=== PATIENT | male | born 1950 | race Caucasian/White ===

== ENCOUNTER 2021-01-07 08:47 | Day surgery (SDC) | payer MEDICARE, SELFPAY ==
--- NOTE | 2021-01-06 11:50 | HO.ANESPROP2 ---
HPI - Anesthesia Eval Consult details Narrative: 70yo M for Colonoscopy [facility] Past Medical History Medical History History of urinary incontinence HTN (hypertension) Neuropathy Surgical History Surgical History Hx of cervical discectomy Hx of colonoscopy Hx of hernia repair Hx of prostatectomy Hx of transurethral resection of prostate Social History Social History Patient Tobacco Use Status: Never used Tobacco Use of substances other than those prescribed or required for medical reasons: No Have you been hit, kicked, punched, or otherwise hurt by someone within the past year? If so, by whom?: No Are you DNR?: No Advance Directives: No Advance Directives Information Provided: Yes Meds Allergies Allergy/AdvReac Type Severity Reaction Status Date / Time No Known Allergies Allergy Verified 01/06/21 12:36 Exam Exam Date and Time: January 06, 2021 1150 Assessment and Plan Assessment Anesthesia Assessment: Chart Reviewed
[2021-01-07 09:15] VITALS: BP 142/75; PULSE 66; RESP 18; TEMP 36.5; O2SAT 97
[2021-01-07 09:19] VITALS: BMI 25.1
--- NOTE | 2021-01-07 09:29 | HO.ANESPROP2 ---
COUNT INCLUDES THE [facility] Past Medical History Medical History History of urinary incontinence HTN (hypertension) Neuropathy Surgical History Surgical History Hx of cervical discectomy Hx of colonoscopy Hx of hernia repair Hx of prostatectomy Hx of transurethral resection of prostate Social History Social History Patient Tobacco Use Status: Never used Tobacco Use of substances other than those prescribed or required for medical reasons: No Have you been hit, kicked, punched, or otherwise hurt by someone within the past year? If so, by whom?: No Are you DNR?: No Advance Directives: No Advance Directives Information Provided: Yes Meds Allergies Allergy/AdvReac Type Severity Reaction Status Date / Time No Known Allergies Allergy Verified 01/06/21 12:36 Active Medications: Current Medications Generic Name Dose Route Start Last Admin Trade Name Terenceq PRN Reason Stop Dose Admin Lactated Ringer's 1,000 mls @ 100 mls/hr 01/07/21 09:15 Lr IVCONT .Q10H JIAN Exam Exam Date and Time: January 07, [id number] Height,Weight and Vital Signs: Height 5 ft 9 in Weight 77.111 kg Last Vital Signs Temp 97.7 F 01/07/21 09:15 Pulse 66 01/07/21 09:15 Resp 18 01/07/21 09:15 BP 142/75 H 01/07/21 09:15 Pulse Ox 97 01/07/21 09:15 Airway Mallampati Class: I TM Dist: >3cm Neck ROM: Full Heart: RRR Lungs: CTA
[2021-01-07] MEDS: Lactated Ringers 1,000 ML 100 ML IVCONT (09:44)
--- NOTE | 2021-01-07 10:18 | MHC.SHP ---
Pre-Procedural Eval Section A The patient is an INPATIENT: No Changes since office visit: No Cold of Flu in the past 2 weeks, No New Medical Problems, No Changes in Medication and No Patient answered all questions The History & Physical has been completed within 30 days and I have reviewed it.: Yes Section B Chief Complaint: screening Allergies: Allergies Allergy/AdvReac Type Severity Reaction Status Date / Time No Known Allergies Allergy Verified 01/06/21 12:36 Plan I have reviewed the history and physical and performed a pertinent physical examination on my patient. No changes have occurred unless specified.
--- NOTE | 2021-01-07 10:44 | P.BOP_ITS ---
Brief Operative Note Date of Service: 01/07/21 Pre-op diagnosis: screening Post-op diagnosis: same (colon polyp) Surgeon: Eugene Khan Anesthesia: MAC Was an Flight [employer] Specialist used for this Procedure?: No Estimated blood loss (mL): 2 Pathology: other (polyp x1) Condition: stable Disposition: PACU
[2021-01-07 10:48] VITALS: BP 115/69; PULSE 52; RESP 16; TEMP 35.9; O2SAT 98
[2021-01-07 11:03] VITALS: BP 147/86; PULSE 53; RESP 18; TEMP 36.2; O2SAT 98
--- NOTE | 2021-01-07 11:50 | HO.POSTANES ---
Post Anesthesia Evaluation Post Anesthesia Evaluation Vital Signs: Vital Signs Temp Pulse Resp BP Pulse Ox 01/07/21 11:03 97.1 F 53 18 147/86 H 98 01/07/21 10:48 96.6 F L 52 16 115/69 98 01/07/21 09:15 97.7 F 66 18 142/75 H 97 Anesthesia: Monitored Mental Status: Awake Pain Control: Satisfactory Nausea/Vomiting: None Hydration: Adequate Anesthesia-Related Issues: No Anes. Related Issues
--- NOTE | 2021-01-07 12:34 | OP_ITS ---
SURGEON: Eugene Khan MD INDICATIONS: Colon cancer screening and prior history of adenomatous colon polyps. PREOPERATIVE DIAGNOSIS: POSTOPERATIVE DIAGNOSIS: PROCEDURE PERFORMED: Colonoscopy to the terminal ileum with biopsy. ESTIMATED BLOOD LOSS: COMPLICATIONS: ANESTHESIA: ASSISTANTS: SPECIMENS: MEDICATIONS: Monitored anesthesia care. DESCRIPTION OF PROCEDURE: History and physical performed. The risks and benefits of the procedure were explained to the patient. Informed consent was obtained. The patient was placed in left lateral decubitus position. A digital rectal exam was performed and was found to be normal. The Olympus pediatric video colonoscope was introduced into the rectum and advanced to the cecum without difficulty. The cecum was identified by transillumination, palpation, and identification of the ileocecal valve. Examination was performed and the scope was removed. He tolerated the procedure well and was taken to recovery area in stable condition. FINDINGS: The terminal ileum was normal. The visualized colonic mucosa was normal. The quality of the prep was good. A single polyp measuring less than 5 mm was identified at 60 cm from the anal verge and removed with biopsy forceps. No other polyps were identified. Retroflexed examination showed internal hemorrhoids. IMPRESSION: Colon polyp. RECOMMENDATION: Follow up the biopsy results. MD ANIKET Bates/WADE / [id number]
== END 2021-01-07 11:30 ==
LOC: HO.SSS 08:47
PROVIDERS: PCP Nurse Practitioner Adult Health; Visit Provider Internal Medicine Gastroenterology
PROC: 0DJD8ZZ Inspection of Lower Intestinal Tract, Via Natural or Artificial Opening Endoscopic (ICD-10-PCS; CPT 45378; principal; 2021-01-07 10:20)
DX: Z12.11 Encounter for screening for malignant neoplasm of colon (principal); Z86.010 Personal history of colon polyps; D12.4 Benign neoplasm of descending colon; K64.8 Other hemorrhoids; I10 Essential (primary) hypertension; G62.9 Polyneuropathy, unspecified; R32 Unspecified urinary incontinence; Z79.899 Other long term (current) drug therapy; Z85.46 Personal history of malignant neoplasm of prostate
CPT/HCPCS: 45380; 88305